=== PATIENT | female | born 1960 | race Caucasian/White ===

== ENCOUNTER 2019-03-21 09:00 | Day surgery (SDC) | payer MEDICAID, OTHER ==
[~2019-03-21] VITALS: Ht 162.6 cm; Wt 63.3 kg
[~2019-03-21 09:00] MED LIST: ATEN50TA PO; BENA20TA4 PO; GABA100C14 PO; LETR2.5T PO; METF500T24 PO; NAPR220C61 PO; OMEPRAZOLE; SIMVASTATIN
[2019-03-21 10:11] VITALS: Ht 162.6 cm; Wt 63.3 kg
[2019-03-21 10:20] VITALS: BP 138/72; PULSE 68; RESP 18
[2019-03-21] MEDS ORDERED: LIDOCAINE 2% (SDV) 5 ML INJ ONE (10:31)
[2019-03-21] MEDS ORDERED: PROPOFOL 60 ML ONE (10:31)
[2019-03-21 11:17] VITALS: BP 120/63; PULSE 62; RESP 17
[2019-03-21] MEDS ORDERED: FENTAnyl 50 MCG/ML VIAL IV PRN (11:30)
== END 2019-03-21 11:30 | disposition home or self-care (01) ==
LOC: GIL 09:00
PROVIDERS: ATTEND Internal Medicine Gastroenterology
DX: Z12.11 Encounter for screening for malignant neoplasm of colon (principal); K64.8 Other hemorrhoids; K29.60 Other gastritis without bleeding
CPT/HCPCS: 43239; 45378; 88305; Z7610